=== PATIENT | male | born 1990 | race Caucasian/White ===

== ENCOUNTER 2022-03-18 13:47 | Inpatient (IN) | payer MEDICAID ==
[~2022-03-18] VITALS: Ht 177.8 cm; Wt 93.9 kg
[2022-03-18 14:44] LABS: BASOPHILS % (AUTO) 0.2 % (0.0-2.0); EOSINOPHILS % (AUTO) 0.6 % (1.0-6.0); HEMATOCRIT 50.2 % (41-53); HEMOGLOBIN 17.1 g/dL (13.5-17.5); LYMPHOCYTES # (AUTO) 1.4 K/uL (1.0-4.8); LYMPHOCYTES % (AUTO) 17.9 % (22.0-44.0); MEAN CORPUSCULAR HEMOGLOBIN 30.8 pg (26.0-34.0); MEAN CORPUSCULAR VOLUME 91 fL (80-100); MONOCYTES # (AUTO) 0.4 K/uL (0.1-1.0); MONOCYTES % (AUTO) 5.3 % (2.0-9.0); NEUTROPHILS # (AUTO) 6.1 K/uL (1.8-7.7); PLATELET COUNT (AUTO) 231 K/uL (150-450); RED BLOOD CELL COUNT(AUTO) 5.55 MIL/uL (4.50-5.90); RED CELL DISTRIBUTION WIDTH 12.8 % (11.5-14.5)
[2022-03-18 14:54] LABS: ANION GAP 4 mmol/L (8-16); CALCIUM, TOTAL 9.4 mg/dL (8.8-10.5); CARBON DIOXIDE 32 mmol/L (22-29); CHLORIDE 104 mmol/L (98-107); CREATININE 1.02 mg/dL (0.60-1.30); GLUCOSE,RANDOM 101 mg/dL (70-110); POTASSIUM 4.6 mmol/L (3.5-5.1); SODIUM SERUM 140 mmol/L (136-145); UREA NITROGEN, BLOOD 11 mg/dL (7-18)
[2022-03-18 14:55] LABS: GLOMERULAR FILTR. RATE CALC > 60 mL/min (>60)
[2022-03-18 15:00] LABS: ALANINE AMINOTRANSFERASE 20 U/L (12-78); ALBUMIN 4.2 g/dL (3.4-5.0); ALKALINE PHOSPHATASE 69 U/L (46-116); ASPARTATE AMINOTRANSFERASE 15 U/L (15-37); BILIRUBIN,TOTAL 0.3 mg/dL (0.1-1.0); TOTAL PROTEIN, SERUM 7.7 g/dL (6.4-8.2)
[2022-03-18 16:58] LABS: AMPHET/METH SCREEN,URINE POSITIVE (NEGATIVE); BARBITURATE SCREEN, URINE NEGATIVE (NEGATIVE); BENZODIAZEPINES SCREEN,URINE NEGATIVE (NEGATIVE); CANNABINOID SCREEN,URINE NEGATIVE (NEGATIVE); COCAINE SCREEN,URINE NEGATIVE (NEGATIVE); METHADONE SCREEN, URINE NEGATIVE (NEGATIVE); OPIATE SCREEN,URINE NEGATIVE (NEGATIVE)
[2022-03-18 17:00] LABS: PHENCYCLIDINE SCREEN,URINE NEGATIVE (NEGATIVE)
[2022-03-18] MEDS ORDERED: QUEtiapine FUMARATE 100 MG TABLET PO PRN (17:00)
[2022-03-18] MEDS ORDERED: DiphenhydrAMINE HCL 50 MG/ML VIAL IM ONE (19:00)
[2022-03-18] MEDS ORDERED: LORazepam 2 MG/ML VIAL IM ONE (19:00)
[2022-03-18] MEDS ORDERED: HALOPERIDOL LACTATE 5 MG/ML VIAL IM ONE (19:00)
[2022-03-19 06:57] LABS: COVID AG,FIA SOURCE NASOPHARYNGEAL
[2022-03-19 15:52] VITALS: BP 145/90
[2022-03-19 16:05] VITALS: BP 145/90
[2022-03-20 08:31] VITALS: BP 137/94
[2022-03-20] MEDS ORDERED: GuaiFENesin/D-METHORPHAN [SUGAR-FREE] 200-20MG/10 ML SYRUP UDCUP PO PRN (15:15)
[2022-03-20] MEDS ORDERED: NICOTINE 14 MG/24 HOUR PATCH TD PRN (15:15)
[2022-03-20] MEDS ORDERED: PETROLATUM,WHITE 28 GM JELLY TP PRN (15:15)
[2022-03-20] MEDS ORDERED: IBUPROFEN 400 MG TABLET PO PRN (15:15)
[2022-03-20] MEDS ORDERED: MAG HYDROX/AL HYDROX/SIMETH ES 30 ML SUSPENSION UDCUP PO PRN (15:15)
[2022-03-20] MEDS ORDERED: MAGNESIUM HYDROXIDE SUSPENSION 30 ML UDCUP PO PRN (15:15)
[2022-03-20] MEDS ORDERED: ONDANSETRON HCL 4 MG TABLET PO PRN (15:15)
[2022-03-20] MEDS ORDERED: LOPERAMIDE HCL 2 MG CAPSULE PO PRN (15:15)
[2022-03-20] MEDS ORDERED: ALBUTEROL SULFATE HFA 90 MCG/PUFF 8 GM INHALER IH PRN (15:15)
[2022-03-20] MEDS ORDERED: CloNIDine HCL 0.1 MG TABLET PO PRN (15:15)
[2022-03-20] MEDS ORDERED: DOCUSATE SODIUM 100 MG CAPSULE PO PRN (15:15)
[2022-03-20 16:14] VITALS: BP 127/77
[2022-03-20] MEDS: RisperiDONE 1 MG TABLET PO SCH (20:57)
[2022-03-21 08:47] VITALS: BP 121/71
[2022-03-21] MEDS: RisperiDONE 1 MG TABLET PO SCH (20:46)
[2022-03-22 08:00] VITALS: BP 126/79
[2022-03-22 16:00] VITALS: BP 117/84
[2022-03-22 16:41] VITALS: BP 117/84
[2022-03-22] MEDS: RisperiDONE 1 MG TABLET PO SCH (20:16)
[2022-03-23 09:00] VITALS: BP 119/68
[2022-03-23 16:39] VITALS: BP 116/73
[2022-03-23] MEDS: RisperiDONE 1 MG TABLET PO SCH (20:13)
[2022-03-24 08:24] VITALS: BP 124/82
[2022-03-24 16:08] VITALS: BP 142/69
[2022-03-24] MEDS: RisperiDONE 1 MG TABLET PO SCH (20:15)
[2022-03-25 08:30] VITALS: BP 118/80
[2022-03-25 12:20] VITALS: BP 120/79
[2022-03-25] MEDS: ACETAMINOPHEN 325 MG TABLET PO PRN (12:20)
[2022-03-25 16:23] VITALS: BP 132/69
[2022-03-25] MEDS: RisperiDONE 1 MG TABLET PO SCH (20:59)
[2022-03-26 08:02] LABS: COVID AG,FIA SOURCE NASAL SWAB
[2022-03-26 08:30] VITALS: BP 118/74
[2022-03-26 16:37] VITALS: BP 116/85
[2022-03-26] MEDS: RisperiDONE 1 MG TABLET PO SCH (20:20)
[2022-03-27 08:15] VITALS: BP 114/64
[2022-03-27 16:46] VITALS: BP 125/78
[2022-03-27] MEDS: RisperiDONE 1 MG TABLET PO SCH (20:37)
[2022-03-28 09:00] VITALS: BP 112/71
[2022-03-28 16:00] VITALS: BP 112/71
[2022-03-28 18:59] VITALS: BP 126/74
[2022-03-28] MEDS: ACETAMINOPHEN 325 MG TABLET PO PRN (18:59)
[2022-03-28] MEDS: RisperiDONE 1 MG TABLET PO SCH (20:51)
[2022-03-29 09:00] VITALS: BP 109/64
[2022-03-29 16:18] VITALS: BP 134/78
[2022-03-29] MEDS: RisperiDONE 2 MG TABLET PO SCH (20:28)
[2022-03-30 08:00] VITALS: BP 119/68
[2022-03-30 16:00] VITALS: BP 120/70
[2022-03-30] MEDS: RisperiDONE 2 MG TABLET PO SCH (20:46)
[2022-03-31 08:08] VITALS: BP 104/66
[2022-03-31] MEDS: LORazepam 2 MG TABLET PO PRN (15:54)
[2022-03-31 16:16] VITALS: BP 109/66
[2022-03-31] MEDS: ZOLPIDEM TARTRATE 10 MG TABLET PO PRN (20:22)
[2022-03-31] MEDS: RisperiDONE 2 MG TABLET PO SCH (20:22)
[2022-04-01 08:40] VITALS: BP 145/69
[2022-04-01 16:05] VITALS: BP 117/78
[2022-04-01] MEDS: LORazepam 2 MG TABLET PO PRN (16:27)
[2022-04-01] MEDS: RisperiDONE 2 MG TABLET PO SCH (20:50)
[2022-04-01] MEDS: ZOLPIDEM TARTRATE 10 MG TABLET PO PRN (20:50)
[2022-04-02 06:37] LABS: COVID AG,FIA SOURCE NASAL SWAB
[2022-04-02 08:23] VITALS: BP 113/71
[2022-04-02] MEDS ORDERED: RISP2TAB86 PO (10:32)
== END 2022-04-02 13:47 | disposition home or self-care (01) | DRG 751 ==
LOC: EDBD 13:56 → EMS 13:56 → 3EC 03-19 16:07
PROVIDERS: ADMIT Psychiatry & Neurology Psychiatry; ATTEND Psychiatry & Neurology Psychiatry
DX: F29 Unspecified psychosis not due to a substance or known physiological condition (principal); F22 Delusional disorders; R45.851 Suicidal ideations; F15.20 Other stimulant dependence, uncomplicated; Z20.822 Contact with and (suspected) exposure to COVID-19; F41.9 Anxiety disorder, unspecified; G47.00 Insomnia, unspecified; Z79.899 Other long term (current) drug therapy
CPT/HCPCS: 80053; 85025; 99285; G0480; J1200; J1630; J2060

== ENCOUNTER 2022-04-30 11:40 | Inpatient (IN) | payer MEDICAID ==
[~2022-04-30] VITALS: Ht 182.9 cm; Wt 88.4 kg
[~2022-04-30 11:40] MED LIST: RISP2TAB86 PO
[2022-04-30 12:46] LABS: AMPHET/METH SCREEN,URINE POSITIVE (NEGATIVE); BARBITURATE SCREEN, URINE NEGATIVE (NEGATIVE); BENZODIAZEPINES SCREEN,URINE NEGATIVE (NEGATIVE); CANNABINOID SCREEN,URINE NEGATIVE (NEGATIVE); COCAINE SCREEN,URINE NEGATIVE (NEGATIVE); METHADONE SCREEN, URINE NEGATIVE (NEGATIVE); OPIATE SCREEN,URINE NEGATIVE (NEGATIVE)
[2022-04-30 12:48] LABS: BASOPHILS % (AUTO) 0.3 % (0.0-2.0); HEMATOCRIT 48.8 % (41-53); HEMOGLOBIN 16.5 g/dL (13.5-17.5); LYMPHOCYTES # (AUTO) 1.6 K/uL (1.0-4.8); MEAN CORPUSCULAR HEMOGLOBIN 30.4 pg (26.0-34.0); MEAN CORPUSCULAR HGB CONC 33.7 G/dL (31.0-37.0); MEAN CORPUSCULAR VOLUME 90 fL (80-100); MONOCYTES # (AUTO) 0.6 K/uL (0.1-1.0); MONOCYTES % (AUTO) 5.8 % (2.0-9.0); NEUTROPHILS # (AUTO) 7.8 K/uL (1.8-7.7); NEUTROPHILS % (AUTO) 76.9 % (40.0-70.0); PLATELET COUNT (AUTO) 360 K/uL (150-450); RED BLOOD CELL COUNT(AUTO) 5.42 MIL/uL (4.50-5.90); RED CELL DISTRIBUTION WIDTH 13.1 % (11.5-14.5)
[2022-04-30 12:51] LABS: PHENCYCLIDINE SCREEN,URINE NEGATIVE (NEGATIVE)
[2022-04-30 13:10] LABS: ANION GAP 6 mmol/L (8-16); CALCIUM, TOTAL 9.2 mg/dL (8.8-10.5); CARBON DIOXIDE 29 mmol/L (22-29); CHLORIDE 102 mmol/L (98-107); CREATININE 1.11 mg/dL (0.60-1.30); GLOMERULAR FILTR. RATE CALC > 60 mL/min (>60); GLUCOSE,RANDOM 87 mg/dL (70-110); POTASSIUM 3.7 mmol/L (3.5-5.1); SODIUM SERUM 137 mmol/L (136-145); UREA NITROGEN, BLOOD 11 mg/dL (7-18)
[2022-04-30 13:16] LABS: ALANINE AMINOTRANSFERASE 39 U/L (12-78); ALBUMIN 4.2 g/dL (3.4-5.0); ALKALINE PHOSPHATASE 64 U/L (46-116); ASPARTATE AMINOTRANSFERASE 39 U/L (15-37); BILIRUBIN,TOTAL 0.8 mg/dL (0.1-1.0); TOTAL PROTEIN, SERUM 7.9 g/dL (6.4-8.2)
[2022-04-30 13:58] LABS: COVID AG,FIA SOURCE NASAL SWAB
[2022-04-30] MEDS ORDERED: LORazepam 2 MG TABLET PO PRN (14:15)
[2022-04-30] MEDS ORDERED: OLANZapine 5 MG RAPDIS TABLET PO PRN (14:15)
[2022-04-30] MEDS ORDERED: ZOLPIDEM TARTRATE 10 MG TABLET PO PRN (14:15)
[2022-04-30] MEDS ORDERED: GuaiFENesin/D-METHORPHAN [SUGAR-FREE] 200-20MG/10 ML SYRUP UDCUP PO PRN (14:15)
[2022-04-30] MEDS ORDERED: MAG HYDROX/AL HYDROX/SIMETH ES 30 ML SUSPENSION UDCUP PO PRN (14:15)
[2022-04-30] MEDS ORDERED: HydrOXYzine PAMOATE 50 MG CAPSULE PO PRN (14:15)
[2022-04-30] MEDS ORDERED: TUBERCULIN, PURIFIED PROTEIN DERIVATIVE 5 TU/0.1 ML SYRINGE ID ONE (14:15)
[2022-04-30] MEDS ORDERED: ACETAMINOPHEN 325 MG TABLET PO PRN (14:15)
[2022-04-30] MEDS ORDERED: MAGNESIUM HYDROXIDE SUSPENSION 30 ML UDCUP PO PRN (14:15)
[2022-04-30] MEDS ORDERED: LOPERAMIDE HCL 2 MG CAPSULE PO PRN ×2 (14:15)
[2022-04-30] MEDS: PALIPERIDONE PALMITATE 234 MG/1.5 ML SYRINGE IM ONE (16:00)
[2022-04-30] MEDS: OLANZapine 5 MG RAPDIS TABLET PO SCH (20:28)
[2022-04-30] MEDS: DIVALPROEX SODIUM 500 MG ER TABLET PO SCH (20:28)
[2022-04-30] MEDS: THIAMINE 100 MG TABLET PO SCH (20:29)
[2022-04-30] MEDS: MELATONIN 5 MG TABLET PO SCH (20:29)
[2022-04-30 21:37] VITALS: BP 133/75
[2022-05-01 08:18] VITALS: BP 145/109
[2022-05-01] MEDS: PALIPERIDONE PALMITATE 234 MG/1.5 ML SYRINGE IM ONE ×2 (12:16→14:52)
[2022-05-01] MEDS: THIAMINE 100 MG TABLET PO SCH ×2 (12:17→18:54)
[2022-05-01] MEDS: MULTIVITAMINS WITH MINERALS, THERAPEUTIC TABLET PO SCH (12:18)
[2022-05-01] MEDS: OMEGA-3/DHA/EPA/FISH OIL 1,000 MG CAPSULE PO SCH (12:18)
[2022-05-01] MEDS: FOLIC ACID 1 MG TABLET PO SCH (12:18)
[2022-05-01 15:11] LABS: CHOL/HDL RATIO 3.4 (4.2-7.3); FREE T4 (FREE THYROXINE) 1.14 ng/dL (0.76-1.46); THYROID STIMULATING HORMONE 1.15 uIU/mL (0.36-3.74)
[2022-05-01 16:09] VITALS: BP 143/80
[2022-05-01] MEDS: DIVALPROEX SODIUM 500 MG ER TABLET PO SCH (20:51)
[2022-05-01] MEDS: OLANZapine 5 MG RAPDIS TABLET PO SCH (20:51)
[2022-05-01] MEDS: MELATONIN 5 MG TABLET PO SCH (20:51)
[2022-05-02 08:16] VITALS: BP 139/72
[2022-05-02] MEDS: OMEGA-3/DHA/EPA/FISH OIL 1,000 MG CAPSULE PO SCH (10:03)
[2022-05-02] MEDS: MULTIVITAMINS WITH MINERALS, THERAPEUTIC TABLET PO SCH (10:03)
[2022-05-02] MEDS: THIAMINE 100 MG TABLET PO SCH ×2 (10:03→18:35)
[2022-05-02] MEDS: FOLIC ACID 1 MG TABLET PO SCH (10:03)
[2022-05-02 16:06] VITALS: BP 137/92
[2022-05-02] MEDS: DIVALPROEX SODIUM 500 MG ER TABLET PO SCH (21:02)
[2022-05-02] MEDS: MELATONIN 5 MG TABLET PO SCH (21:03)
[2022-05-02] MEDS ORDERED: PALI117D IM (22:18)
[2022-05-02] MEDS ORDERED: OMEG-135 PO (22:18)
[2022-05-02] MEDS ORDERED: DIVA-80 PO (22:18)
[2022-05-02] MEDS ORDERED: NALT50TA PO (22:18)
[2022-05-02] MEDS ORDERED: MELA5TAB40 PO (22:18)
[2022-05-03] MEDS: THIAMINE 100 MG TABLET PO SCH (09:00)
[2022-05-03] MEDS: MULTIVITAMINS WITH MINERALS, THERAPEUTIC TABLET PO SCH (09:00)
[2022-05-03] MEDS: OMEGA-3/DHA/EPA/FISH OIL 1,000 MG CAPSULE PO SCH (09:00)
[2022-05-03] MEDS: FOLIC ACID 1 MG TABLET PO SCH (09:00)
[2022-05-03] MEDS ORDERED: LOPERAMIDE HCL 2 MG CAPSULE PO PRN (14:15)
[2022-05-03 16:09] VITALS: BP 134/81
[2022-05-05] MEDS ORDERED: PALIPERIDONE PALMITATE 156 MG/ML SYRINGE IM ONE (09:00)
== END 2022-05-03 14:05 | disposition home or self-care (01) | DRG 750 ==
LOC: EMS 11:40 → 3EC 18:25
PROVIDERS: ADMIT Psychiatry & Neurology Psychiatry; ATTEND Psychiatry & Neurology Psychiatry
DX: F20.9 Schizophrenia, unspecified (principal); F15.10 Other stimulant abuse, uncomplicated; Z20.822 Contact with and (suspected) exposure to COVID-19; F17.210 Nicotine dependence, cigarettes, uncomplicated; J44.9 Chronic obstructive pulmonary disease, unspecified; Z55.9 Problems related to education and literacy, unspecified; Z59.9 Problem related to housing and economic circumstances, unspecified; Z63.9 Problem related to primary support group, unspecified; Z65.3 Problems related to other legal circumstances; Z79.899 Other long term (current) drug therapy
CPT/HCPCS: 80053; 80061; 80307; 83036; 84439; 84443; 85025; 86592; 87081; 99285; G0480; Q9967

== ENCOUNTER 2022-07-12 09:07 | Inpatient (IN) | payer MEDICAID, OTHER ==
[~2022-07-12] VITALS: Ht 182.9 cm; Wt 89.4 kg
[~2022-07-12 09:07] MED LIST changes: +DIVA500T53 PO; +MELA5TAB40 PO; +NALT50TA PO; +PALI117D IM; -RISP2TAB86 PO
[2022-07-12] MEDS ORDERED: LORazepam 2 MG TABLET PO ONE (10:30)
[2022-07-12] MEDS ORDERED: OLANZapine 5 MG TABLET PO ONE (10:30)
[2022-07-12] MEDS ORDERED: ZOLPIDEM TARTRATE 10 MG TABLET PO PRN (11:30)
[2022-07-12] MEDS ORDERED: HALOPERIDOL 5 MG TABLET PO PRN (11:30)
[2022-07-12] MEDS ORDERED: LORazepam 2 MG TABLET PO PRN (11:30)
[2022-07-12 12:24] LABS: BASOPHILS % (AUTO) 0.5 % (0.0-2.0); EOSINOPHILS % (AUTO) 0.4 % (1.0-6.0); HEMATOCRIT 43.4 % (41-53); HEMOGLOBIN 15.2 g/dL (13.5-17.5); LYMPHOCYTES # (AUTO) 1.5 K/uL (1.0-4.8); LYMPHOCYTES % (AUTO) 25.5 % (22.0-44.0); MEAN CORPUSCULAR HEMOGLOBIN 31.4 pg (26.0-34.0); MEAN CORPUSCULAR VOLUME 90 fL (80-100); MONOCYTES # (AUTO) 0.3 K/uL (0.1-1.0); MONOCYTES % (AUTO) 5.9 % (2.0-9.0); NEUTROPHILS # (AUTO) 3.9 K/uL (1.8-7.7); NEUTROPHILS % (AUTO) 67.7 % (40.0-70.0); PLATELET COUNT (AUTO) 240 K/uL (150-450); RED BLOOD CELL COUNT(AUTO) 4.84 MIL/uL (4.50-5.90); RED CELL DISTRIBUTION WIDTH 13.1 % (11.5-14.5)
[2022-07-12 12:33] LABS: COVID AG,FIA SOURCE NASAL SWAB
[2022-07-12 12:47] LABS: ANION GAP 7 mmol/L (8-16); CALCIUM, TOTAL 9.4 mg/dL (8.8-10.5); CARBON DIOXIDE 28 mmol/L (22-29); CHLORIDE 104 mmol/L (98-107); GLOMERULAR FILTR. RATE CALC > 60 mL/min (>60); GLUCOSE,RANDOM 98 mg/dL (70-110); SODIUM SERUM 139 mmol/L (136-145); UREA NITROGEN, BLOOD 8 mg/dL (7-18)
[2022-07-12 12:56] LABS: ALANINE AMINOTRANSFERASE 17 U/L (12-78); ALBUMIN 4.5 g/dL (3.4-5.0); ALKALINE PHOSPHATASE 56 U/L (46-116); ASPARTATE AMINOTRANSFERASE 20 U/L (15-37); BILIRUBIN,TOTAL 0.9 mg/dL (0.1-1.0); TOTAL PROTEIN, SERUM 7.5 g/dL (6.4-8.2)
[2022-07-12 23:14] VITALS: BP 117/86
[2022-07-13] MEDS ORDERED: IBUPROFEN 600 MG TABLET PO PRN (06:00)
[2022-07-13] MEDS ORDERED: MAGNESIUM HYDROXIDE SUSPENSION 30 ML UDCUP PO PRN (06:00)
[2022-07-13] MEDS ORDERED: LOPERAMIDE HCL 2 MG CAPSULE PO PRN (06:00)
[2022-07-13] MEDS ORDERED: CloNIDine HCL 0.1 MG TABLET PO PRN (06:00)
[2022-07-13] MEDS ORDERED: PETROLATUM,WHITE 28 GM JELLY TP PRN (06:00)
[2022-07-13] MEDS ORDERED: MAG HYDROX/AL HYDROX/SIMETH ES 30 ML SUSPENSION UDCUP PO PRN (06:00)
[2022-07-13] MEDS ORDERED: BENZOCAINE/MENTHOL LOZENGE PO PRN (06:00)
[2022-07-13] MEDS ORDERED: OMEPRAZOLE 20 MG CAPSULE PO PRN (06:00)
[2022-07-13] MEDS ORDERED: ALBUTEROL SULFATE HFA 90 MCG/PUFF 8 GM INHALER IH PRN (06:00)
[2022-07-13] MEDS ORDERED: ONDANSETRON HCL 4 MG TABLET PO PRN (06:00)
[2022-07-13] MEDS ORDERED: ACETAMINOPHEN 325 MG TABLET PO PRN (06:00)
[2022-07-13] MEDS ORDERED: BACITRACIN 28 GM OINTMENT TP PRN (06:00)
[2022-07-13] MEDS ORDERED: DOCUSATE SODIUM 100 MG CAPSULE PO PRN (06:00)
[2022-07-13 20:07] VITALS: BP 110/63
[2022-07-14 08:02] VITALS: BP 116/65
[2022-07-14 20:39] VITALS: BP 121/74
[2022-07-15 08:09] VITALS: BP 126/74
[2022-07-15] MEDS: LITHIUM CARBONATE 300 MG CAPSULE PO SCH ×2 (10:06→17:55)
[2022-07-15] MEDS: DIVALPROEX SODIUM 500 MG DR TABLET PO SCH ×3 (10:06→17:54)
[2022-07-15] MEDS ORDERED: PALIPERIDONE PALMITATE 234 MG/1.5 ML SYRINGE IM SCH (16:00)
[2022-07-15 20:41] VITALS: BP 110/63
[2022-07-16 08:25] VITALS: BP 100/60
[2022-07-16] MEDS: DIVALPROEX SODIUM 500 MG DR TABLET PO SCH ×3 (09:02→17:05)
[2022-07-16] MEDS: LITHIUM CARBONATE 300 MG CAPSULE PO SCH ×2 (09:02→17:05)
[2022-07-16 20:10] VITALS: BP 108/66
[2022-07-17 08:12] VITALS: BP 117/68
[2022-07-17] MEDS: LITHIUM CARBONATE 300 MG CAPSULE PO SCH ×2 (08:42→16:48)
[2022-07-17] MEDS: DIVALPROEX SODIUM 500 MG DR TABLET PO SCH ×3 (08:42→16:48)
[2022-07-17 20:18] VITALS: BP 108/68
[2022-07-18 08:08] VITALS: BP 116/60
[2022-07-18] MEDS: DIVALPROEX SODIUM 500 MG DR TABLET PO SCH ×3 (08:34→17:26)
[2022-07-18] MEDS: LITHIUM CARBONATE 300 MG CAPSULE PO SCH ×2 (08:34→17:26)
[2022-07-18 20:21] VITALS: BP 105/62
[2022-07-19] MEDS: LITHIUM CARBONATE 300 MG CAPSULE PO SCH ×2 (08:39→16:50)
[2022-07-19] MEDS: DIVALPROEX SODIUM 500 MG DR TABLET PO SCH ×3 (08:39→16:50)
[2022-07-19 10:04] VITALS: BP 102/68
[2022-07-19 15:05] LABS: GLUCOMETER DEV NAME(LOC) POC.BV
[2022-07-19 20:07] VITALS: BP 106/62
[2022-07-20] MEDS: DIVALPROEX SODIUM 500 MG DR TABLET PO SCH ×3 (08:26→18:22)
[2022-07-20] MEDS: LITHIUM CARBONATE 300 MG CAPSULE PO SCH ×2 (08:26→18:22)
[2022-07-20 20:25] VITALS: BP 128/78
[2022-07-21 08:29] VITALS: BP 101/60
[2022-07-21] MEDS: LITHIUM CARBONATE 300 MG CAPSULE PO SCH (08:37)
[2022-07-21] MEDS: DIVALPROEX SODIUM 500 MG DR TABLET PO SCH ×2 (08:37→12:38)
[2022-07-21] MEDS ORDERED: DIVA500T53 PO (14:26)
[2022-07-21] MEDS ORDERED: LITH300C3 PO (14:26)
[2022-07-21] MEDS ORDERED: PALI234D IM (14:27)
== END 2022-07-21 17:01 | disposition home or self-care (01) | DRG 750 ==
LOC: EMS 09:08 → B3A 18:59
PROVIDERS: ADMIT Psychiatry & Neurology Psychiatry; ATTEND Psychiatry & Neurology Psychiatry
DX: F20.9 Schizophrenia, unspecified (principal); F15.10 Other stimulant abuse, uncomplicated; Z53.20 Procedure and treatment not carried out because of patient's decision for unspecified reasons; F41.9 Anxiety disorder, unspecified; Z20.822 Contact with and (suspected) exposure to COVID-19; G47.00 Insomnia, unspecified; K59.00 Constipation, unspecified
CPT/HCPCS: 80053; 85025; 99285; G0480

== ENCOUNTER 2023-01-08 04:06 | Inpatient (IN) | payer MEDICAID, OTHER ==
[~2023-01-08] VITALS: Ht 182.9 cm; Wt 103.9 kg
[~2023-01-08 04:06] MED LIST changes: +LITH300C3 PO; -MELA5TAB40 PO; -NALT50TA PO; -PALI117D IM; +PALI234D IM
[2023-01-08] MEDS ORDERED: HALOPERIDOL 5 MG TABLET PO ONE (05:00)
[2023-01-08] MEDS ORDERED: DiphenhydrAMINE HCL 50 MG CAPSULE PO ONE (05:00)
[2023-01-08] MEDS ORDERED: LORazepam 2 MG TABLET PO ONE (05:00)
[2023-01-08 05:24] LABS: COVID AG,FIA SOURCE NASAL SWAB
[2023-01-08 05:29] LABS: ALCOHOL, URINE DRUG SCREEN NEGATIVE (NEGATIVE); AMPHET/METH SCREEN,URINE NEGATIVE (NEGATIVE); BARBITURATE SCREEN, URINE NEGATIVE (NEGATIVE); BENZODIAZEPINES SCREEN,URINE NEGATIVE (NEGATIVE); CANNABINOID SCREEN,URINE NEGATIVE (NEGATIVE); COCAINE SCREEN,URINE NEGATIVE (NEGATIVE); METHADONE SCREEN, URINE NEGATIVE (NEGATIVE); OPIATE SCREEN,URINE NEGATIVE (NEGATIVE); PHENCYCLIDINE SCREEN,URINE NEGATIVE (NEGATIVE)
[2023-01-08] MEDS ORDERED: ZOLPIDEM TARTRATE 10 MG TABLET PO PRN (05:30)
[2023-01-08] MEDS ORDERED: LORazepam 2 MG TABLET PO PRN (05:30)
[2023-01-08] MEDS ORDERED: OLANZapine 5 MG RAPDIS TABLET PO PRN (05:30)
[2023-01-08 05:48] LABS: APPEARANCE,URINE CLEAR (CLEAR); BILIRUBIN,URINE NEGATIVE (NEGATIVE); COLOR,URINE LIGHT YELLOW (YELLOW); GLUCOSE, URINE (UA) NEGATIVE (NEGATIVE); KETONES,URINE NEGATIVE (NEGATIVE); LEUKOCYTE ESTERASE ,URINE TRACE (NEGATIVE); NITRATE,URINE NEGATIVE (NEGATIVE); OCCULT BLOOD,URINE NEGATIVE (NEGATIVE); PROTEIN,URINE NEGATIVE (NEGATIVE); SPECIFIC GRAVITIY, URINE 1.015 (1.003-1.030); UROBILINOGEN,URINE <=1.0 mg/dL (<=1.0)
[2023-01-08 05:48] LABS: SARS-COV2 (COVID) ANTIGEN,FIA Negative (Negative)
[2023-01-08 06:07] LABS: BACTERIA,URINE None Seen /HPF (None Seen); RBC,URINE None Seen /HPF (0-2); SQUAMOUS EPITHELIAL CELL,UR None Seen /LPF (None Seen); WBC,URINE 0-2 /HPF (0-5)
[2023-01-08 08:19] LABS: BASOPHILS % (AUTO) 0.4 % (0.0-2.0); EOSINOPHILS % (AUTO) 0.4 % (1.0-6.0); HEMATOCRIT 44.8 % (41-53); HEMOGLOBIN 15.4 g/dL (13.5-17.5); LYMPHOCYTES # (AUTO) 2.4 K/uL (1.0-4.8); LYMPHOCYTES % (AUTO) 30.8 % (22.0-44.0); MEAN CORPUSCULAR HEMOGLOBIN 31.1 pg (26.0-34.0); MEAN CORPUSCULAR HGB CONC 34.3 G/dL (31.0-37.0); MEAN CORPUSCULAR VOLUME 91 fL (80-100); MONOCYTES # (AUTO) 0.5 K/uL (0.1-1.0); MONOCYTES % (AUTO) 5.9 % (2.0-9.0); NEUTROPHILS % (AUTO) 62.5 % (40.0-70.0); PLATELET COUNT (AUTO) 267 K/uL (150-450); RED BLOOD CELL COUNT(AUTO) 4.95 MIL/uL (4.50-5.90); RED CELL DISTRIBUTION WIDTH 13.7 % (11.5-14.5); WHITE BLOOD COUNT (AUTO) 7.9 K/uL (4.5-11.0)
[2023-01-08 08:27] LABS: ANION GAP 6 mmol/L (8-16); CALCIUM, TOTAL 9.2 mg/dL (8.8-10.5); CARBON DIOXIDE 28 mmol/L (22-29); CHLORIDE 105 mmol/L (98-107); CREATININE 0.97 mg/dL (0.60-1.30); GLOMERULAR FILTR. RATE CALC > 60 mL/min (>60); GLUCOSE,RANDOM 101 mg/dL (70-110); POTASSIUM 3.6 mmol/L (3.5-5.1); SODIUM SERUM 139 mmol/L (136-145); UREA NITROGEN, BLOOD 8 mg/dL (7-18)
[2023-01-08 08:34] LABS: ALANINE AMINOTRANSFERASE 8 U/L (12-78); ALBUMIN 3.9 g/dL (3.4-5.0); ALKALINE PHOSPHATASE 58 U/L (46-116); ASPARTATE AMINOTRANSFERASE 10 U/L (15-37); BILIRUBIN,TOTAL 0.5 mg/dL (0.1-1.0); VALPROIC ACID < 3 mcg/mL (50-100)
[2023-01-08 08:35] LABS: ALCOHOL, BLOOD (SERUM) < 3 mg/dL (0-10); LITHIUM < 0.20 mmol/L (0.60-1.20)
[2023-01-08] MEDS ORDERED: GuaiFENesin/D-METHORPHAN [SUGAR-FREE] 200-20MG/10 ML SYRUP UDCUP PO PRN (11:00)
[2023-01-08] MEDS ORDERED: HydrOXYzine PAMOATE 50 MG CAPSULE PO PRN (11:00)
[2023-01-08] MEDS ORDERED: PALIPERIDONE PALMITATE 234 MG/1.5 ML SYRINGE IM ONE ×2 (11:00)
[2023-01-08] MEDS ORDERED: LOPERAMIDE HCL 2 MG CAPSULE PO PRN (11:00)
[2023-01-08] MEDS ORDERED: DIVA-112 PO (11:06)
[2023-01-08 11:30] VITALS: BP 110/68; PULSE 85; RESP 18; TEMP 97.9; O2SAT 99
[2023-01-08] MEDS: THIAMINE 100 MG TABLET PO SCH (16:03)
[2023-01-08] MEDS: DIVALPROEX SODIUM 500 MG ER TABLET PO SCH (20:26)
[2023-01-08] MEDS: MELATONIN 5 MG TABLET PO SCH (20:27)
[2023-01-08] MEDS: TraZODone HCL 50 MG TABLET PO SCH (20:27)
[2023-01-08] MEDS: QUEtiapine FUMARATE 200 MG TABLET PO SCH (20:27)
[2023-01-08 20:54] VITALS: BP 118/69; PULSE 96; RESP 18; TEMP 97.5; O2SAT 100
[2023-01-08] MEDS ORDERED: OLANZapine 5 MG RAPDIS TABLET PO SCH (21:00)
[2023-01-09 08:16] VITALS: RESP 18
[2023-01-09] MEDS: THIAMINE 100 MG TABLET PO SCH ×2 (09:00→17:00)
[2023-01-09] MEDS: OMEGA-3/DHA/EPA/FISH OIL 1,000 MG CAPSULE PO SCH (09:00)
[2023-01-09] MEDS: NALTREXONE HCL 50 MG TABLET PO SCH (09:00)
[2023-01-09] MEDS: MULTIVITAMINS WITH MINERALS, THERAPEUTIC TABLET PO SCH (09:00)
[2023-01-09] MEDS: FOLIC ACID 1 MG TABLET PO SCH (09:00)
[2023-01-09] MEDS: DIVALPROEX SODIUM 500 MG ER TABLET PO SCH (20:12)
[2023-01-09] MEDS: TraZODone HCL 50 MG TABLET PO SCH (20:12)
[2023-01-09] MEDS: QUEtiapine FUMARATE 200 MG TABLET PO SCH (20:12)
[2023-01-09] MEDS: MELATONIN 5 MG TABLET PO SCH (20:12)
[2023-01-09 21:29] VITALS: BP 129/71; PULSE 76; RESP 18; TEMP 98; O2SAT 98
[2023-01-10] MEDS: NALTREXONE HCL 50 MG TABLET PO SCH (08:09)
[2023-01-10] MEDS: THIAMINE 100 MG TABLET PO SCH ×2 (08:09→17:00)
[2023-01-10] MEDS: FOLIC ACID 1 MG TABLET PO SCH (08:09)
[2023-01-10] MEDS: OMEGA-3/DHA/EPA/FISH OIL 1,000 MG CAPSULE PO SCH (08:09)
[2023-01-10] MEDS: MULTIVITAMINS WITH MINERALS, THERAPEUTIC TABLET PO SCH (08:09)
[2023-01-10 08:40] VITALS: RESP 18
[2023-01-10] MEDS: DIVALPROEX SODIUM 500 MG ER TABLET PO SCH (20:08)
[2023-01-10] MEDS: QUEtiapine FUMARATE 200 MG TABLET PO SCH (20:08)
[2023-01-10] MEDS: TraZODone HCL 50 MG TABLET PO SCH (20:09)
[2023-01-10] MEDS: MELATONIN 5 MG TABLET PO SCH (20:09)
[2023-01-10 20:11] VITALS: BP 131/78; PULSE 75; RESP 18; TEMP 97.8; O2SAT 97
[2023-01-11 08:34] VITALS: RESP 18
[2023-01-11] MEDS: NALTREXONE HCL 50 MG TABLET PO SCH (09:00)
[2023-01-11] MEDS: MULTIVITAMINS WITH MINERALS, THERAPEUTIC TABLET PO SCH (09:00)
[2023-01-11] MEDS: OMEGA-3/DHA/EPA/FISH OIL 1,000 MG CAPSULE PO SCH (09:00)
[2023-01-11] MEDS: THIAMINE 100 MG TABLET PO SCH ×2 (09:00→17:27)
[2023-01-11] MEDS: FOLIC ACID 1 MG TABLET PO SCH (09:00)
[2023-01-11] MEDS: TraZODone HCL 50 MG TABLET PO SCH (21:08)
[2023-01-11] MEDS: DIVALPROEX SODIUM 500 MG ER TABLET PO SCH (21:08)
[2023-01-11] MEDS: QUEtiapine FUMARATE 200 MG TABLET PO SCH (21:08)
[2023-01-11] MEDS: MELATONIN 5 MG TABLET PO SCH (21:10)
[2023-01-11 23:14] VITALS: BP 125/85; PULSE 75; RESP 18; TEMP 98; O2SAT 97
[2023-01-12 08:58] VITALS: BP 127/86; PULSE 71; RESP 18; TEMP 97; O2SAT 95
[2023-01-12] MEDS: THIAMINE 100 MG TABLET PO SCH ×2 (09:00→17:00)
[2023-01-12] MEDS: FOLIC ACID 1 MG TABLET PO SCH (09:00)
[2023-01-12] MEDS ORDERED: PALIPERIDONE PALMITATE 156 MG/ML SYRINGE IM ONE ×2 (09:00)
[2023-01-12] MEDS: OMEGA-3/DHA/EPA/FISH OIL 1,000 MG CAPSULE PO SCH (09:00)
[2023-01-12] MEDS: NALTREXONE HCL 50 MG TABLET PO SCH (09:00)
[2023-01-12] MEDS: MULTIVITAMINS WITH MINERALS, THERAPEUTIC TABLET PO SCH (09:00)
[2023-01-12] MEDS: DIVALPROEX SODIUM 500 MG ER TABLET PO SCH (20:33)
[2023-01-12] MEDS: TraZODone HCL 50 MG TABLET PO SCH (20:33)
[2023-01-12] MEDS: QUEtiapine FUMARATE 200 MG TABLET PO SCH (20:33)
[2023-01-12] MEDS: MELATONIN 5 MG TABLET PO SCH (21:00)
[2023-01-12 23:42] VITALS: BP 110/74; PULSE 72; RESP 18; TEMP 97.8; O2SAT 97
[2023-01-13 08:24] VITALS: RESP 17
[2023-01-13] MEDS: FOLIC ACID 1 MG TABLET PO SCH (09:00)
[2023-01-13] MEDS: MULTIVITAMINS WITH MINERALS, THERAPEUTIC TABLET PO SCH (13:41)
[2023-01-13] MEDS: NALTREXONE HCL 50 MG TABLET PO SCH (13:41)
[2023-01-13] MEDS: THIAMINE 100 MG TABLET PO SCH ×2 (13:41→17:48)
[2023-01-13] MEDS: OMEGA-3/DHA/EPA/FISH OIL 1,000 MG CAPSULE PO SCH (13:41)
[2023-01-13 20:50] VITALS: BP 109/75; PULSE 77; RESP 18; TEMP 97.7; O2SAT 98
[2023-01-13] MEDS: MELATONIN 5 MG TABLET PO SCH (21:00)
[2023-01-13] MEDS: TraZODone HCL 50 MG TABLET PO SCH (21:14)
[2023-01-13] MEDS: DIVALPROEX SODIUM 500 MG ER TABLET PO SCH (21:14)
[2023-01-13] MEDS: QUEtiapine FUMARATE 200 MG TABLET PO SCH (21:14)
[2023-01-14] MEDS: QUEtiapine FUMARATE 100 MG TABLET PO PRN ×2 (06:57→20:31)
[2023-01-14 08:28] VITALS: RESP 18
[2023-01-14] MEDS: FOLIC ACID 1 MG TABLET PO SCH (08:39)
[2023-01-14] MEDS: MULTIVITAMINS WITH MINERALS, THERAPEUTIC TABLET PO SCH (08:39)
[2023-01-14] MEDS: THIAMINE 100 MG TABLET PO SCH ×2 (08:39→17:47)
[2023-01-14] MEDS: OMEGA-3/DHA/EPA/FISH OIL 1,000 MG CAPSULE PO SCH (08:39)
[2023-01-14] MEDS: NALTREXONE HCL 50 MG TABLET PO SCH (08:39)
[2023-01-14 20:14] VITALS: BP 110/64; PULSE 78; RESP 18; TEMP 97.8; O2SAT 100
[2023-01-14] MEDS: TraZODone HCL 50 MG TABLET PO SCH (20:31)
[2023-01-14] MEDS: MELATONIN 5 MG TABLET PO SCH (20:31)
[2023-01-14] MEDS: DIVALPROEX SODIUM 500 MG ER TABLET PO SCH (20:31)
[2023-01-14] MEDS ORDERED: QUEtiapine FUMARATE 200 MG TABLET PO SCH (21:00)
[2023-01-15 08:43] VITALS: BP 118/62; PULSE 63; RESP 18; TEMP 97.8; O2SAT 98
[2023-01-15] MEDS: NALTREXONE HCL 50 MG TABLET PO SCH (09:00)
[2023-01-15] MEDS: MULTIVITAMINS WITH MINERALS, THERAPEUTIC TABLET PO SCH (09:00)
[2023-01-15] MEDS: FOLIC ACID 1 MG TABLET PO SCH (09:00)
[2023-01-15] MEDS: THIAMINE 100 MG TABLET PO SCH ×2 (09:00→17:35)
[2023-01-15] MEDS: OMEGA-3/DHA/EPA/FISH OIL 1,000 MG CAPSULE PO SCH (09:00)
[2023-01-15] MEDS: TraZODone HCL 50 MG TABLET PO SCH (20:31)
[2023-01-15] MEDS: MELATONIN 5 MG TABLET PO SCH (20:32)
[2023-01-15] MEDS: DIVALPROEX SODIUM 500 MG ER TABLET PO SCH (20:32)
[2023-01-15 20:33] VITALS: BP 114/64; PULSE 68; RESP 18; TEMP 97.8; O2SAT 97
[2023-01-15] MEDS ORDERED: QUEtiapine FUMARATE 300 MG TABLET PO SCH (21:00)
[2023-01-16] MEDS: OMEGA-3/DHA/EPA/FISH OIL 1,000 MG CAPSULE PO SCH (08:03)
[2023-01-16] MEDS: FOLIC ACID 1 MG TABLET PO SCH (08:03)
[2023-01-16] MEDS: NALTREXONE HCL 50 MG TABLET PO SCH (08:04)
[2023-01-16] MEDS: THIAMINE 100 MG TABLET PO SCH ×2 (08:04→17:37)
[2023-01-16] MEDS: MULTIVITAMINS WITH MINERALS, THERAPEUTIC TABLET PO SCH (08:04)
[2023-01-16 08:33] VITALS: RESP 18
[2023-01-16 20:15] VITALS: RESP 18; TEMP 97.7
[2023-01-16] MEDS: QUEtiapine FUMARATE 200 MG TABLET PO SCH (20:15)
[2023-01-16] MEDS: TraZODone HCL 50 MG TABLET PO SCH (20:15)
[2023-01-16] MEDS: DIVALPROEX SODIUM 500 MG ER TABLET PO SCH (20:15)
[2023-01-16] MEDS: MELATONIN 5 MG TABLET PO SCH (20:16)
[2023-01-17 08:33] VITALS: BP 118/60; PULSE 71; RESP 18; TEMP 97.3; O2SAT 98
[2023-01-17] MEDS: NALTREXONE HCL 50 MG TABLET PO SCH (08:45)
[2023-01-17] MEDS: FOLIC ACID 1 MG TABLET PO SCH (08:45)
[2023-01-17] MEDS: THIAMINE 100 MG TABLET PO SCH ×2 (08:45→16:48)
[2023-01-17] MEDS: MULTIVITAMINS WITH MINERALS, THERAPEUTIC TABLET PO SCH (09:06)
[2023-01-17] MEDS: OMEGA-3/DHA/EPA/FISH OIL 1,000 MG CAPSULE PO SCH (09:06)
[2023-01-17 20:22] VITALS: BP 164/82; PULSE 89; RESP 18; TEMP 98; O2SAT 97
[2023-01-17] MEDS: DIVALPROEX SODIUM 500 MG ER TABLET PO SCH (20:44)
[2023-01-17] MEDS: MELATONIN 5 MG TABLET PO SCH (20:44)
[2023-01-17] MEDS: QUEtiapine FUMARATE 200 MG TABLET PO SCH (20:44)
[2023-01-17] MEDS: TraZODone HCL 50 MG TABLET PO SCH (20:45)
[2023-01-18] MEDS: FOLIC ACID 1 MG TABLET PO SCH (08:28)
[2023-01-18] MEDS: OMEGA-3/DHA/EPA/FISH OIL 1,000 MG CAPSULE PO SCH (08:28)
[2023-01-18] MEDS: MULTIVITAMINS WITH MINERALS, THERAPEUTIC TABLET PO SCH (08:28)
[2023-01-18] MEDS: THIAMINE 100 MG TABLET PO SCH (08:28)
[2023-01-18] MEDS: NALTREXONE HCL 50 MG TABLET PO SCH (08:28)
[2023-01-18 08:47] VITALS: RESP 18
[2023-01-18 20:11] VITALS: BP 149/96; PULSE 78; RESP 19; TEMP 97.8
[2023-01-18] MEDS: TraZODone HCL 50 MG TABLET PO SCH (21:33)
[2023-01-18] MEDS: QUEtiapine FUMARATE 200 MG TABLET PO SCH (21:33)
[2023-01-18] MEDS: DIVALPROEX SODIUM 500 MG ER TABLET PO SCH (21:33)
[2023-01-18] MEDS: MELATONIN 5 MG TABLET PO SCH (21:34)
[2023-01-19] MEDS: MULTIVITAMINS WITH MINERALS, THERAPEUTIC TABLET PO SCH (09:00)
[2023-01-19] MEDS: OMEGA-3/DHA/EPA/FISH OIL 1,000 MG CAPSULE PO SCH (09:00)
[2023-01-19] MEDS: NALTREXONE HCL 50 MG TABLET PO SCH (09:00)
[2023-01-19 09:46] VITALS: RESP 18
[2023-01-19] MEDS: DIVALPROEX SODIUM 500 MG ER TABLET PO SCH (20:08)
[2023-01-19] MEDS: QUEtiapine FUMARATE 200 MG TABLET PO SCH (20:08)
[2023-01-19] MEDS: MELATONIN 5 MG TABLET PO SCH (20:09)
[2023-01-19] MEDS: TraZODone HCL 50 MG TABLET PO SCH (20:09)
[2023-01-19 20:16] VITALS: BP 142/82; PULSE 80; RESP 18; TEMP 97.8; O2SAT 98
[2023-01-20] MEDS: OMEGA-3/DHA/EPA/FISH OIL 1,000 MG CAPSULE PO SCH (08:22)
[2023-01-20] MEDS: MULTIVITAMINS WITH MINERALS, THERAPEUTIC TABLET PO SCH (08:22)
[2023-01-20] MEDS: NALTREXONE HCL 50 MG TABLET PO SCH (08:22)
[2023-01-20 13:15] VITALS: BP 111/60; PULSE 72; RESP 18; TEMP 97.5; O2SAT 98
[2023-01-20 13:16] VITALS: BP 111/60; PULSE 72; RESP 18; TEMP 97.8; O2SAT 97
[2023-01-20 20:14] VITALS: BP 120/80; PULSE 86; RESP 18; TEMP 97.6; O2SAT 98
[2023-01-20] MEDS: TraZODone HCL 50 MG TABLET PO SCH (20:31)
[2023-01-20] MEDS: DIVALPROEX SODIUM 500 MG ER TABLET PO SCH (20:31)
[2023-01-20] MEDS: QUEtiapine FUMARATE 200 MG TABLET PO SCH (20:31)
[2023-01-20] MEDS: MELATONIN 5 MG TABLET PO SCH (20:40)
[2023-01-21] MEDS: NALTREXONE HCL 50 MG TABLET PO SCH (08:33)
[2023-01-21] MEDS: MULTIVITAMINS WITH MINERALS, THERAPEUTIC TABLET PO SCH (08:33)
[2023-01-21] MEDS: OMEGA-3/DHA/EPA/FISH OIL 1,000 MG CAPSULE PO SCH (08:33)
[2023-01-21 08:42] VITALS: BP 112/69; PULSE 69; RESP 17; TEMP 97.6; O2SAT 98
[2023-01-21] MEDS ORDERED: DIVA500T69 PO (16:45)
[2023-01-21] MEDS ORDERED: QUET200T30 PO (16:45)
[2023-01-21] MEDS ORDERED: TRAZ-252 PO (16:45)
[2023-01-21] MEDS ORDERED: OMEG-135 PO (16:45)
[2023-01-21] MEDS ORDERED: NALT50TA PO (16:45)
[2023-01-21] MEDS ORDERED: MELA5TAB40 PO (16:45)
== END 2023-01-21 18:50 | disposition home or self-care (01) | DRG 750 ==
LOC: EMS 04:08 → B3A 09:24
PROVIDERS: ADMIT Psychiatry & Neurology Psychiatry; ATTEND Psychiatry & Neurology Psychiatry
DX: F20.0 Paranoid schizophrenia (principal); G93.41 Metabolic encephalopathy; Z91.148 Patient's other noncompliance with medication regimen for other reason; Z20.822 Contact with and (suspected) exposure to COVID-19; F17.210 Nicotine dependence, cigarettes, uncomplicated; J44.9 Chronic obstructive pulmonary disease, unspecified; F19.10 Other psychoactive substance abuse, uncomplicated; N39.0 Urinary tract infection, site not specified; Z79.899 Other long term (current) drug therapy
CPT/HCPCS: 80053; 80164; 80178; 80307; 81001; 85025; 99285; G0480; Q9967